=== PATIENT | male | born 1950 | race African-American/Black ===

== ENCOUNTER 2022-05-21 08:03 | Emergency (ER) | payer MEDICARE ==
[2022-05-21] MEDS ORDERED: Ketorolac Tromethamine 30 MG/ML VIAL ONE (09:04)
[2022-05-21] MEDS ORDERED: Acetaminophen 500 MG TAB ONE (09:04)
== END 2022-05-21 09:35 | disposition home or self-care (01) ==
LOC: CSHERS 08:03
DX: G89.29 Other chronic pain (principal); M54.2 Cervicalgia; E78.5 Hyperlipidemia, unspecified; E78.00 Pure hypercholesterolemia, unspecified; I10 Essential (primary) hypertension; F17.210 Nicotine dependence, cigarettes, uncomplicated
CPT/HCPCS: 96372; 99283; J1885

== ENCOUNTER 2022-11-18 09:09 | Outpatient (CLI) | payer OTHER ==
[2022-11-18] MEDS ORDERED: Magnevist 469MG/ML 20 ML VIAL ONE (10:18)
== END 2022-11-18 09:10 | disposition home or self-care (01) ==
LOC: CSHMRI 09:09
PROVIDERS: ATTEND Urology
DX: C61 Malignant neoplasm of prostate (principal); R97.20 Elevated prostate specific antigen [PSA]
CPT/HCPCS: 72197; A9579